=== PATIENT | male | born 1970 | race Hispanic/Latino ===

== ENCOUNTER 2025-01-09 21:11 | Emergency (ER) | payer SELFPAY ==
[2025-01-09] VITALS (13 sets, daily range): BP systolic 146–178; BP diastolic 76–118
[~2025-01-09] VITALS: Ht 165.1 cm; Wt 84.0 kg
[2025-01-09] MEDS ORDERED: amLODIPine BESYLATE 5 MG/TAB PO ONE (21:30)
[2025-01-09] MEDS ORDERED: KETOROLAC TROMETHAMINE 30 MG/ML SDV IV ONE (21:30)
[2025-01-09] MEDS ORDERED: SODIUM CHLORIDE 0.9% 1,000 ML IV ONE (21:30)
[2025-01-09] MEDS ORDERED: LISINOPRIL 10 MG/TAB PO ONE (21:30)
[2025-01-09] MEDS ORDERED: cloNIDine HCL 0.1 MG/TAB PO ONE (21:30)
[2025-01-09] MEDS ORDERED: ACETAMINOPHEN 500 MG TAB PO ONE (21:30)
[2025-01-09 21:50] LABS: BASO% 0.8 % (0-3); EOS% 3.4 % (0-8); HEMOGLOBIN 13.5 g/dl (14.0-18.0); IMMATURE GRANULOCYTES 0.2 % (0.0-5.0); LYMPH% 35.1 % (15-41); MEAN CELL VOLUME 85.6 fL CALC (80.0-100.0); MEAN CORPUSCULAR HGB 28.2 pG CALC (26.0-32.0); MEAN CORPUSCULAR HGB CONC 32.9 g/dL CAL (32.0-36.0); MONO% 7.1 % (2-13); NEUT# 4.76 thou/uL (1.82-7.42); NEUT% 53.4 % (42-76); RED BLOOD COUNT 4.79 mill/uL (4.70-6.10); RED CELL DISTRI WIDTH 15.3 % (11.5-15.5)
[2025-01-09 22:02] LABS: ALBUMIN 4.2 g/dL (3.2-5.0); BILIRUBIN, TOTAL 0.5 mg/dL (0.2-1.3); POTASSIUM 3.3 mmol/l (3.5-5.1); TOTAL PROTEIN 7.7 g/dL (6.3-8.2)
[2025-01-09 22:08] LABS: ACT PARTIAL THROMBO TIME 25.6 SECONDS (20.0-32.5); INTERNATIONAL NORMALIZED RATIO 0.9 RATIO (0.7-1.3)
[2025-01-09 22:09] LABS: PROTHROMBIN TIME 9.9 SECONDS (9.0-12.5)
[2025-01-09 22:52] LABS: URINE BILIRUBIN - DIPSTICK Negative (NEGATIVE); URINE BLOOD DIPSTICK Moderate (NEGATIVE); URINE GLUCOSE - DIPSTICK Negative (NEGATIVE); URINE KETONE Negative (NEGATIVE); URINE NITRITE - DIPSTICK Negative (Negative); URINE PH 6.5 (4.5-8.0); URINE PROTEIN - DIPSTICK 100 mg/dL (NEG-TRACE); URINE UROBILINOGEN - DIPSTICK 0.2 E.U./dL (0.2)
[2025-01-09 22:54] LABS: URINE COLOR Yellow
[2025-01-09] MEDS ORDERED: hydrALAZINE HCL 20 MG/ML VIAL(1 ML) IV ONE (23:05)
[2025-01-09 23:08] LABS: URINE LEUK ESTERASE Negative (NEGATIVE); URINE RBC >100 RBC/hpf (0-5)
[2025-01-09 23:09] LABS: URINE EPITHELIAL CELLS FEW EPI/hpf (0-FEW)
[2025-01-09 23:10] LABS: URINE BACTERIA FEW hpf; URINE MUCUS FEW hpf (NONE-FEW)
[2025-01-09] MEDS ORDERED: LISINOP/HCTZ1 TAB PO (23:25)
[2025-01-09] MEDS ORDERED: AMLODIPINE BESY10 MG PO (23:25)
== END 2025-01-09 23:56 | disposition home or self-care (01) | DRG 103 ==
LOC: ED 21:11
PROVIDERS: Family Medicine
DX: R51.9 Headache, unspecified (principal); I10 Essential (primary) hypertension; R31.9 Hematuria, unspecified; E78.5 Hyperlipidemia, unspecified; F17.210 Nicotine dependence, cigarettes, uncomplicated
CPT/HCPCS: J0360